=== PATIENT | female | born 1940 | race Caucasian/White ===

== ENCOUNTER 2017-03-13 15:50 | Inpatient (IN) | payer MEDICARE ==
[~2017-03-13] VITALS: Ht 157.4 cm; Wt 62.3 kg
--- NOTE | ~2017-03-13 | PR ---
[place], [place] PROGRESS NOTE NAME: LORA ALVARADO UNIT #: [id number] ROOM: 316 DOCTOR: LYNN LEWIS MD BIRTHDATE: [birth year] DOS: 03/23/2017 CHIEF COMPLAINT: "Good morning." SUMMARY OF THE VISIT: The patient was interviewed both in the dining area, where she was sitting and watching television, and then later as she was walking with one of the aides in the hallway. She was bright and pleasant upon approach, very superficial responses, confused, but pleasant. There was no agitation, no mood lability. Also, there was no overt side effect from the medicines themselves. I saw no sedation, somnolence, extrapyramidal symptoms or tardive dyskinesia. MENTAL STATUS: She is alert and oriented to person may be place, although it is doubtful not to time. Mood does seem to be strongly trending towards euthymia and affect is much more appropriate. There are no symptoms of hunter or hypomania. There are no auditory or visual hallucinations. No delusions are voiced. No paranoia is present. Short term memory is exceedingly poor, and she processes slowly. Long-term memory remains intact. PLAN: I will recheck a valproic acid level in the a.m. Maintain her current psychotropic regimen as benefits are present without noticeable side effects. We will return her to her long-term care facility when psychiatrically stable. LYNN LEWIS MD CM:PNTRANS [id number] LYNN LEWIS MD 03/23/17 1011 interface
--- NOTE | ~2017-03-13 | PR ---
[place], [place] PROGRESS NOTE NAME: LORA ALVARADO UNIT #: [id number] ROOM: 316 DOCTOR: ZOE FOX BIRTHDATE: [birth year] DOS: CHIEF COMPLAINT: The patient was sleeping. SUMMARY OF THE VISIT: She was resting in her bed with her eyes closed. Staff reported that she was up all night that she had been hallucinating about a girl at the end of the douglas. She required PRNs of both Ativan and Geodon last evening and now is sleeping. She opened her eyes momentarily whenever I went into the room, but did not make any attempt to engage or speak with me, most likely because of the p.r.n. Geodon that she had received. The Geodon however was effective. She had been going in and out of other people's rooms, yelling and having the hallucinations. MENTAL STATUS EXAMINATION: She was sleeping when I entered into the room. PLAN: We will try giving her Geodon p.o. 20 mg at 5 p.m. to try to head off this ing that she seems to be doing since it was effective last night. Continue to engage her in individual and tsai milieu with a plan to discharge back to the [facility] when she is psychiatrically stable. Zoe Fox NP CM:ABIDA 1 17 ZOE FOX 03/15/171917 interface
--- NOTE | ~2017-03-13 | PR ---
[place], [place] PROGRESS NOTE NAME: LORA ALVARADO UNIT #: [id number] ROOM: 316 DOCTOR: LYNN LEWIS MD BIRTHDATE: [birth year] DOS: 03/16/2017 CHIEF COMPLAINT: "I can't find my room, can you help me." SUMMARY OF THE VISIT: The patient was interviewed as she was walking in the douglas trying to find her room. I did escort her to her room and then later walked her down to the [facility] [place]. She was pleasantly confused with me and was able to be redirected fairly well. Nurses report that she does sundown in the evening and that last evening that Geodon 20 mg at 1700 hours did seem to help a little with decreasing her overall level of agitation. She is tolerating the medications well and notes no sedation, somnolence, extrapyramidal symptoms, or tardive dyskinesia. MENTAL STATUS: She is alert and oriented to self only. She is rather confused and disoriented and her thoughts are fragmented. Speech is slow and halting and she is very disjointed in her thoughts. Her responses at times are inappropriate. Short term memory is exceedingly poor. PLAN: I will go ahead and increase the dose of Geodon from 20 to 40 mg at 1700 hours, attempting to further decrease the sundowning symptomatology that is so problematic. I have drawn another Depakote level this morning to ensure that it is therapeutic. We will adjust the medication accordingly, engage in individual and tsai milieu activity with the ultimate plan to return back to [facility] when psychiatrically stable. LYNN LEWIS MD CM:PNTRANS [id number] LYNN LEWIS MD 03/16/1716 interface
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
--- NOTE | ~2017-03-13 | PR ---
[place], [place] PROGRESS NOTE NAME: LORA ALVARADO UNIT #: [id number] ROOM: 316 DOCTOR: ORLIN HU BIRTHDATE: [birth year] DOS: 03/22/2017 CHIEF COMPLAINT: "Good morning." SUMMARY OF VISIT: The patient assessed in her room, where she was sleeping, lying in bed. It should be noted nursing brought to my attention that yesterday afternoon, she was a little less redirectable and then over in the evening, she woke up in the middle of the night disrupt, came out naked looking for clothing, much more difficult to redirect. Only change yesterday was I did stop her Depakote since Dr. Cortez had been increasing her Geodon. We were going to try to simplify her medications, but it appears that her impulsivity has increased since the Depakote has been stopped. MENTAL STATUS: Alert and oriented to person. I am not sure today about place or time. Mood overall euthymic. It seems depressed in the morning, I think she is just not a morning person. I believe this is her baseline, but once she starts to engage in conversation, she is quite pleasant. PLAN: Continue with the Namenda and Exelon since they are at their maximum dose. I am going to add back Depakote Sprinkles 500 mg b.i.d. I stopped it yesterday. Her Depakote level yesterday was 67, so it is in the therapeutic range. We will continue with the Geodon. This individual may just need to be on these two medications to help with behaviors and her impulsivity. We will continue to try to engage in individual and tsai milieu therapy. Plan to discharge once psychologically stable. LYLA HU CNP CM:PNTRANS 0659 2 ORLIN HU 03/22/17822 interface
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
--- NOTE | ~2017-03-13 | PR ---
[place], [place] PROGRESS NOTE NAME: LORA ALVARADO UNIT #: [id number] ROOM: 316 DOCTOR: LYNN LEWIS MD BIRTHDATE: [birth year] DOS: 03/24/2017 CHIEF COMPLAINT: "Morning." SUMMARY OF THE VISIT: The patient was interviewed first as she walked in the douglas with me and then later she sat down in the dining area waiting for breakfast. She engaged in brief superficial conversation, none of which was spontaneous, but her responses for the most part were fairly accurate. Most of her responses, however, were very short and simple. At times, she did respond inappropriately. There was no agitation or aggression, however, and she was fairly pleasant for the most part. MENTAL STATUS: She is alert and oriented to self, perhaps place, although it is not consistent and she is certainly not oriented to time. Mood does seem to be trending towards euthymia. Affect is more appropriate. There is no symptom suggestive of hunter or hypomania. There are no overt auditory or visual hallucinations. No delusions are present. No paranoia is voiced. Short term memory is exceedingly poor, otherwise she is intact. PLAN: I will maintain her current psychotropic regimen and plan to discharge back to [facility] when psychiatrically stable. LYNN LEWIS MD CM:PNTRANS 0730 0 LYNN LEWIS MD 03/24/17 0801 interface
--- NOTE | ~2017-03-13 | PR ---
[place], [place] PROGRESS NOTE NAME: LORA ALVARADO UNIT #: [id number] ROOM: 316 DOCTOR: ORLIN HU BIRTHDATE: [birth year] DOS: 03/17/2017 CHIEF COMPLAINT: "Good morning." SUMMARY OF VISIT: The patient was assessed in the dining room, where she was sitting down to breakfast. She seemed confused and is oriented, but I am told this is kind of her baseline, she just always pleasantly confused. We will monitor her p.o. intake. No p.r.n. medication was needed at this time. MENTAL STATUS: She is alert and oriented to self only. There are no overt signs of auditory or visual hallucinations, delusions or paranoia. Memory is exceedingly poor. PLAN: Dr. Cortez increased her Geodon to 40 mg at 1500 to decrease her symptomatology, I think this is helping. She had a Depakote level drawn, it came back yesterday at 73.9, so she is in the therapeutic range. I want to see how she does over the next 24 hours as far as her to see if that Geodon needs to be adjusted even more, but I need to give it time to work and her body to acclimate to it first. We will continue to try to support. We will try individual and tsai milieu therapy. I do not know how effective it is. One-on-one interactions with the nurses seem to be the best stimulation and distractions for this patient and the nurses are happy to accommodate that. We will continue to monitor and discharge once stable. LYLA HU CNP CM:PNTRANS 0821 0118 ORLIN HU 03/18/17 0118 interface
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
--- NOTE | ~2017-03-13 | PR ---
[place], [place] PROGRESS NOTE NAME: LORA ALVARADO UNIT #: [id number] ROOM: 316 DOCTOR: LYNN LEWIS MD BIRTHDATE: [birth year] DOS: 03/20/2017 CHIEF COMPLAINT: "Morning, is it breakfast time." SUMMARY OF THE VISIT: The patient was interviewed as she rested quietly in bed. She awoke easily and did maintain eye contact. She did not exhibit spontaneity, but she answered my questions most of the time appropriately and other times, she was quite disjointed and fragmented in her thinking. Nurses report, she continues to exhibit mood lability and sundowning, especially worse in the evening hours along these lines. Bharat Jackson, nurse practitioner adjusted her Depakote level upward. MENTAL STATUS: She is alert and oriented to person, possibly place, although I very much doubt it, certainly not to time. Mood still is labile. Affect at times is inappropriate. Her responses are fragmented and disjointed, and she is confused. There is no overt hunter or hypomania. There are no overt auditory or visual hallucinations. No paranoia and No delusions voiced. Short term memory remains exceedingly poor. PLAN: I will maintain the current dose of Namenda and Exelon as they have been maxed out, and they are being utilized to help improve or maintain ADLs, behavior and cognition. I will renew her p.r.n. Ativan in case she requires p.r.n. intervention. Given the fact that her Depakote dose was just increased I will recheck a valproic acid level in the a.m. to ensure that it is therapeutic. I will also increase her Geodon as this seems to be the most effective drug to date at stopping her behaviors. I will increase Geodon to 20 mg in the morning and continue the 40 mg dose in the p.m. hours. Depending on her level and her response, I may discontinue Depakote altogether and see if the Geodon as monotherapy can control her mood lability and agitation. We will continue to engage her in individual and tsai milieu activity with the ultimate plan to return back to [facility] when psychiatrically stable. LYNN LEWIS MD CM:PNTRANS 0823 0151 LYNN LEWIS MD 03/21/17 0150 interface
--- NOTE | ~2017-03-13 | PR ---
[place], [place] PROGRESS NOTE NAME: LORA ALVARADO UNIT #: [id number] ROOM: 316 DOCTOR: ORLIN HU BIRTHDATE: [birth year] DOS: 03/18/2017 CHIEF COMPLAINT: The patient was actually nonverbal this morning. SUMMARY OF VISIT: The patient was assessed in the dining room where she was waiting for breakfast. She looks straight ahead, really did not engage with me in conversation or look at me when I was talking to her. MENTAL STATUS: She is alert and oriented to self only. No overt signs of auditory or visual hallucinations, delusions, paranoia, hunter or hypomania. Memory is exceedingly poor. No voiced complaints from nursing regarding this patient. PLAN: nights ago, her Geodon was increased to help decrease some of her symptomatology, I think this is helping. Her Depakote level is within normal range. She is on the maximum dose of Exelon and Namenda; however, since the patient is not engaging and overtly friendly and not going even though confused like she was yesterday, I want to keep an eye on her and see if maybe the bump in the Geodon was too much for her. If I need to, I will decrease it. She does not seem sedated. She is choosing not to at this point in time interact or engage at all. We will continue to try to engage in individual and tsai milieu therapy with the plan to discharge back to the retirement once stable. LYLA HU CNP CM:PNTRANS 0818 0042 ORLIN HU 03/19/17 0043 interface
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
[2017-03-13] MEDS ORDERED: REMERON15 M2 PO (15:54)
[2017-03-13] MEDS ORDERED: RIVASTIGMINE TAR6 M1 PO (15:55)
[2017-03-13] MEDS ORDERED: NAMENDA10 MG PO (15:57)
[2017-03-13] MEDS ORDERED: RISPERDAL0.25 MG PO (15:59)
[2017-03-13] MEDS ORDERED: RISPERDAL0.5 MG PO (16:00)
[2017-03-13] MEDS ORDERED: ATIVAN1 MG PO (16:01)
[2017-03-13] MEDS ORDERED: ATIVAN IM (16:02)
[2017-03-13] MEDS ORDERED: DULCOLAX5 M1 PO (16:03)
[2017-03-13] MEDS ORDERED: ASPIRIN81 M1 PO (16:05)
[2017-03-13] MEDS ORDERED: DEPAKOTE ER250 MG PO (16:06)
[2017-03-13] MEDS ORDERED: PROTONIX40 MG PO (16:07)
[2017-03-13] MEDS ORDERED: VITAMIN D-32000 UNIT PO (16:08)
[2017-03-13] MEDS ORDERED: TAB-A-VITE1 TA1 PO (16:08)
[2017-03-13] MEDS ORDERED: LISINOPRIL10 M1 PO (16:09)
[2017-03-13] MEDS ORDERED: ZIAC 5 MG-6.25 MG PO (16:23)
[2017-03-13 20:37] VITALS: BP 107/87
[2017-03-13 21:36] VITALS: BP 107/87
[2017-03-14 07:30] LABS: BASO % 0.4 % (0.0-1.0); EOS # 0.1 10*3/uL (0.0-0.4); EOS % 1.5 % (1.0-4.0); HEMATOCRIT 31.9 % (37.0-47.0); HEMOGLOBIN 10.3 g/dl (12.0-16.0); LYMPH # 1.8 10*3/uL (1.3-4.4); LYMPH % 27.1 % (27.0-41.0); MEAN CORPUSCULAR HGB 31.3 pg (27.0-31.0); MEAN CORPUSCULAR HGB CONC 32.3 g/dl (33.0-37.0); MEAN PLATELET VOLUME 11.5 fl (9.6-12.3); MONO # 0.6 10*3/uL (0.1-1.0); MONO % 8.7 % (3.0-9.0); NEUT # 4.2 10*3/uL (2.3-7.9); PLATELET COUNT AUTOMATED 143 10*3/uL (130-400); RED BLOOD COUNT 3.29 10*6/uL (4.10-5.10); WHITE BLOOD COUNT 6.8 10*3/uL (4.8-10.8)
[2017-03-14 07:46] VITALS: BP 122/61
[2017-03-14 07:59] LABS: ALBUMIN 2.8 gm/dl (3.1-4.5); BILIRUBIN, TOTAL 0.2 mg/dl (0.2-1.0); POTASSIUM 3.8 mmol/L (3.5-5.1); TOTAL PROTEIN 5.7 gm/dL (6.4-8.2)
[2017-03-14 08:11] LABS: THYROID STIM HORMONE (HS) 0.881 uIU/ml (0.358-4.75)
[2017-03-14 08:44] LABS: VITAMIN D, 25-HYDROXY 33.8 ng/mL (30-100)
[2017-03-14 19:15] VITALS: BP 105/62
[2017-03-15 07:49] VITALS: BP 125/88
[2017-03-15 19:38] VITALS: BP 110/50
[2017-03-16 08:48] VITALS: BP 116/62
[2017-03-16 11:28] LABS: BILIRUBIN NEGATIVE (NEGATIVE); BLOOD NEGATIVE (NEGATIVE); CLARITY CLEAR (CLEAR); COLOR YELLOW (YELLOW); GLUCOSE NEGATIVE (NEGATIVE); KETONE TRACE (NEGATIVE); LEUKO ESTERASE TRACE (NEGATIVE); NITRITE NEGATIVE (NEGATIVE); PROTEIN NEGATIVE (NEGATIVE); UROBILINOGEN 0.2 E.U./dl (0.2-1.0)
[2017-03-16 11:38] LABS: BACTERIA TRACE; MUCOUS 1+; URINE REFLEX COMMENT YES (NO)
[2017-03-16 20:00] VITALS: BP 112/74
[2017-03-17 08:03] VITALS: BP 119/55
[2017-03-17 20:00] VITALS: BP 110/60
[2017-03-18 08:24] VITALS: BP 135/53
[2017-03-18 20:00] VITALS: BP 133/56
[2017-03-19 08:27] VITALS: BP 116/42
[2017-03-19 19:49] VITALS: BP 146/67
[2017-03-20 08:00] VITALS: BP 118/68
[2017-03-20 20:17] VITALS: BP 133/73
[2017-03-21 06:39] LABS: POTASSIUM 4.4 mmol/L (3.5-5.1)
[2017-03-21 07:39] VITALS: BP 141/46
[2017-03-21 19:25] VITALS: BP 115/50
[2017-03-22 07:50] VITALS: BP 130/79
[2017-03-22 20:02] VITALS: BP 154/70
[2017-03-23 07:39] VITALS: BP 128/74
[2017-03-23 19:45] VITALS: BP 150/61
[2017-03-24 07:50] VITALS: BP 126/66
[2017-03-24 19:58] VITALS: BP 100/30; BP 118/62
[2017-03-25] MEDS ORDERED: GEODON20 MG PO (08:21)
[2017-03-25] MEDS ORDERED: EXELON13.3 MG/21 T (08:21)
[2017-03-25] MEDS ORDERED: ZIPRASIDONE HCL40 MG PO (08:21)
[2017-03-25] MEDS ORDERED: DIVALPROEX SOD125 M1 PO (08:21)
[2017-03-25 08:43] VITALS: BP 141/79
== END 2017-03-25 13:32 | disposition other institution (70) | DRG 885 ==
LOC: 3N 15:50
PROVIDERS: Internal Medicine; Psychiatry & Neurology Psychiatry
DX: F23 Brief psychotic disorder (principal); R13.10 Dysphagia, unspecified; I10 Essential (primary) hypertension; K21.9 Gastro-esophageal reflux disease without esophagitis; E55.9 Vitamin D deficiency, unspecified; F17.200 Nicotine dependence, unspecified, uncomplicated; F32.9 Major depressive disorder, single episode, unspecified; F41.1 Generalized anxiety disorder; Z79.82 Long term (current) use of aspirin; Z71.6 Tobacco abuse counseling; Z79.899 Other long term (current) drug therapy